=== PATIENT | male | born 1980 | race Caucasian/White ===

== ENCOUNTER 2016-10-28 20:38 | Emergency (ER) | payer OTHER ==
[~2016-10-28] VITALS: Ht 175.3 cm; Wt 81.6 kg
[2016-10-28 21:00] VITALS: BP 148/100
--- NOTE | 2016-10-29 03:09 | ED.ADGEN ---
Past History Past Medical History: Depression, Other Past Surgical History: No Surgical History Alcohol Use: Occasionally Drug Use: None Adult General Chief Complaint Chief Complaint Left hand injury [facility] Patient is a 36-year-old right-handed male who presents with 6 hour old laceration to left thumb pad. Patient caught hand on a sharp object on the underside of couch. Patient initially presented to [facility] emergency department but left prior to being seen due to prolonged waiting time. After going home, the patient applied superglue to his hand and applied a pressure bandage, which is been in place for 2 hours. Patient's concerned about possible continued bleeding. Tetanus is up-to-date Review of Systems Review of Systems ROS as per [facility] Allergies Allergies Allergies Coded Allergies Type Severity Reaction Last Updated Verified No Known Drug Allergies 10/28/16 No Physical Exam Physical Exam Constitutional: Well developed, well nourished, no acute distress, non-toxic appearance. Extremities: Left hand, thumb had laceration concealed with glue with gentle oozing around adhesive. Neurologic: Alert and oriented X 3, normal motor function, normal sensory function, no focal deficits noted. Psychologic: Affect normal, judgement normal, mood normal. Current Patient Data Vital Signs Vital Signs Date Time Temp Pulse Resp B/P Pulse Ox O2 Delivery O2 Flow Rate FiO2 10/28/16 21:00 97.8 76 20 97 Room Air EKG EKG [] Radiology/Procedures Radiology/Procedures [] Impressions: Left hand laceration Course & Med Decision Making Course & Med Decision Making Pertinent Labs and Imaging studies reviewed. (See chart for details) [Tissue adhesive applied surrounding wound edges to control bleeding. Will place on antibiotics, keep wound bandaged with PCP follow-up. Return precautions reviewed.] Final Impression Final Impression [1. left hand laceration] Problems: Dragon Disclaimer Dragon Disclaimer This chart was dictated in whole or in part using Voice Recognition software in a busy, high-work load, and often noisy Emergency Department environment. It may contain unintended and wholly unrecognized errors or omissions. NICK GARCIA DO Oct 29, 2016 03:09
== END 2016-10-28 21:42 | disposition home or self-care (01) ==
LOC: ER 20:38
DX: S61.012A Laceration without foreign body of left thumb without damage to nail, initial encounter (principal); W45.8XXA Other foreign body or object entering through skin, initial encounter; Y93.89 Activity, other specified; Y99.8 Other external cause status; Y92.89 Other specified places as the place of occurrence of the external cause
CPT/HCPCS: 12001; 99283

== ENCOUNTER 2018-03-27 22:56 | Emergency (ER) | payer OTHER ==
[~2018-03-27] VITALS: Ht 175.3 cm; Wt 86.2 kg
[2018-03-27] MEDS ORDERED: ASPIRIN 81 MG TAB.CHEW ONE (23:01)
--- NOTE | 2018-03-27 23:26 | EKG ---
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
[2018-03-27] MEDS ORDERED: MORPHINE SULFATE 4 MG/ML DISP.SYRIN. IV/SQ PRN (23:30)
[2018-03-27] MEDS ORDERED: ASPIRIN 81 MG TAB.CHEW PO ONE (23:30)
--- NOTE | 2018-03-27 23:36 | ED.ADGEN ---
Past History Past Medical History: No Pertinent History, Depression, Other Past Surgical History: No Surgical History Alcohol Use: Occasionally Drug Use: None Adult General HPI HPI Patient is a 37 year old male who presents with chest/back pain. Patient had onset of symptoms about 9:30 this evening. He was driving in a car. He was not doing anything strenuous. Pain was fell over the sternum and did radiate to the back. Currently, the patient continues to have pain in the back. He states the pain radiated to his neck at one point. He did not have shortness of breath. He has no recent travel. He does have a history of coronary artery disease in his grandfather but this was onset at a later age. Patient has otherwise been at baseline health. No fever or chills or cough. He denies prior history of similar symptoms or personal history of coronary artery disease. Review of Systems Review of Systems Constitutional: Denies fever or chills Eyes: Denies change in visual acuity, redness, or eye pain HENT: Denies nasal congestion or sore throat Respiratory: Denies cough or shortness of breath Cardiovascular: No additional information not addressed in HPI GI: Denies abdominal pain, Musculoskeletal: Denies back pain or joint pain Integument: Denies rash or skin lesions Neurologic: Denies headache Endocrine: no polydipsia All other systems were reviewed and found to be within normal limits, except as documented in this note. Current Medications Current Medications Current Medications Medications (Trade) Dose Ordered Sig/Raquel Start Time Stop Time Status Last Admin Dose Admin Aspirin (Children'S Aspirin) 324 mg 1X ONCE 03/27/18 23:30 03/28/18 00:03 DC 03/27/18 23:02 324 MG Morphine Sulfate (Morphine 4mg Syringe) 4 mg PRN Q15MIN PRN 03/27/18 23:30 03/28/18 23:29 03/27/18 23:44 4 MG Allergies Allergies Allergies Coded Allergies Type Severity Reaction Last Updated Verified No Known Drug Allergies 10/28/16 No Physical Exam Physical Exam Constitutional: Well developed, well nourished, no acute distress, non-toxic appearance. HENT: Normocephalic, atraumatic, bilateral external ears normal, oropharynx moist Eyes: PERRLA, EOMI Neck: Normal range of motion Cardiovascular:Heart rate regular rhythm, no murmur Lungs & Thorax: Bilateral breath sounds clear to auscultation Abdomen: Bowel sounds normal Skin: Warm, dry, no erythema, no rash Extremities: No edema Neurologic: Alert and oriented X 3 Psychologic: Affect normal, judgement normal, mood normal Current Patient Data Vital Signs Vital Signs Date Time Temp Pulse Resp B/P (MAP) Pulse Ox O2 Delivery O2 Flow Rate FiO2 03/28/18 00:11 57 17 125/73 (90) 96 Room Air Lab Results Laboratory Tests Test 03/27/18 23:30 White Blood Count 9.3 x10^3/uL (4.0-11.0) Red Blood Count 4.75 x10^6/uL (4.30-5.70) Hemoglobin 14.0 g/dL (13.0-17.5) Hematocrit 41.0 % (39.0-53.0) Mean Corpuscular Volume 86 fL (79-100) Mean Corpuscular Hemoglobin 30 pg (25-35) Mean Corpuscular Hemoglobin Concent 34 g/dL (31-37) Red Cell Distribution Width 13.0 % (11.5-14.5) Platelet Count 320 x10^3/uL (140-400) Neutrophils (%) (Auto) 51 % (31-73) Lymphocytes (%) (Auto) 36 % (24-48) Monocytes (%) (Auto) 8 % (0-9) Eosinophils (%) (Auto) 5 % (0-3) H Basophils (%) (Auto) 1 % (0-3) Neutrophils # (Auto) 4.7 x10^3uL (1.8-7.7) Lymphocytes # (Auto) 3.3 x10^3/uL (1.0-4.8) Monocytes # (Auto) 0.7 x10^3/uL (0.0-1.1) Eosinophils # (Auto) 0.4 x10^3/uL (0.0-0.7) Basophils # (Auto) 0.1 x10^3/uL (0.0-0.2) D-Dimer (Manisha) < 0.19 mg/L (0.00-0.50) Sodium Level 140 mmol/L (136-145) Potassium Level 3.4 mmol/L (3.5-5.1) L Chloride Level 103 mmol/L (98-107) Carbon Dioxide Level 25 mmol/L (21-32) Anion Gap 12 (6-14) Blood Urea Nitrogen 12 mg/dL (8-26) Creatinine 1.0 mg/dL (0.7-1.3) Estimated GFR (Cockcroft-Gault) 83.2 Glucose Level 109 mg/dL (70-99) H Calcium Level 8.5 mg/dL (8.5-10.1) Troponin I Quantitative < 0.017 ng/mL (0-0.055) EKG EKG No acute ST changes to suggest ischemia Radiology/Procedures Radiology/Procedures No acute findings seen on AP chest xray Course & Med Decision Making Course & Med Decision Making Pertinent Labs and Imaging studies reviewed. (See chart for details) Patient is seen and examined. His EKG is nonacute. Standard ACS workup is ordered. 02:00: All results are completed. The patient had 2 troponins which were not elevated. He had 2 EKGs which did not reveal acute ST changes concerning for ischemia. Patient had a d-dimer which was not elevated. This does rule out pulmonary embolus as a cause for his pain. Although not normally use to rule out aortic pathology, a normal dimer does decrease the chances of pain from aortic pathology. Chest x-ray was normal. There was no widened mediastinum. Overall, the patient did not have any acute source for his pain identified this evening he did receive a dose of morphine and felt much improved. Consideration is given for admission and cardiology evaluation. The patient prefers to pursue this as outpatient. He does live close to the hospital and will return if he develops any new or worsening symptoms or if his pain returns. He will be discharged from the ER this evening. He is provided the name to the business systems developer on-call and instructed to call the number on Friday to schedule a evaluation and possible stress test. All of his questions are answered prior to discharge and he is agreeable to this plan of care. Final Impression Final Impression [] Dragon Disclaimer Dragon Disclaimer This electronic medical record was generated, in whole or in part, using a voice recognition dictation system. SLOANE ACOSTA DO Mar 27, 2018 23:36
[2018-03-27 23:49] LABS: BASO # 0.1 x10^3/uL (0.0-0.2); BASO % 1 % (0-3); EOS # 0.4 x10^3/uL (0.0-0.7); EOS % 5 % (0-3); LYMPH # 3.3 x10^3/uL (1.0-4.8); LYMPH % 36 % (24-48); MEAN CORPUSCULAR HEMOGLOBIN 30 pg (25-35); MEAN CORPUSCULAR HGB CONC 34 g/dL (31-37); MEAN CORPUSCULAR VOLUME 86 fL (79-100); MONO # 0.7 x10^3/uL (0.0-1.1); MONO % 8 % (0-9); NEUT # 4.7 x10^3uL (1.8-7.7); NEUT % 51 % (31-73); PLATELET COUNT 320 x10^3/uL (140-400); RED BLOOD COUNT 4.75 x10^6/uL (4.30-5.70); WHITE BLOOD COUNT 9.3 x10^3/uL (4.0-11.0)
[2018-03-27 23:52] LABS: CALCIUM 8.5 mg/dL (8.5-10.1); GFR 83.2; POTASSIUM 3.4 mmol/L (3.5-5.1)
[2018-03-28 02:05] VITALS: BP 128/51
--- NOTE | 2018-03-28 05:45 | EKG ---
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
--- NOTE | 2018-03-28 07:56 | RAD ---
PORTABLE CHEST 1V Clinical indications: Chest pain, no prior injury or surgery to chest area COMPARISON: None available. Findings: No acute lung infiltrate or pleural effusion or pulmonary edema or lung mass or pneumothorax is seen. The heart size, pulmonary vasculature, mediastinum and both david are unremarkable. Impression: No acute radiographic abnormality is seen. Electronically signed by: Dereck Mann MD (03/28/2018 7:53 AM) [facility]
== END 2018-03-28 02:08 | disposition home or self-care (01) ==
LOC: ER 22:56
DX: R07.2 Precordial pain (principal); F32.9 Major depressive disorder, single episode, unspecified; Z79.82 Long term (current) use of aspirin
CPT/HCPCS: 36415; 71045; 80048; 84484; 85025; 85379; 93005; 96372; 99285; J2270; 96374

== ENCOUNTER 2019-05-23 11:56 | Emergency (ER) | payer OTHER ==
[~2019-05-23] VITALS: Ht 172.7 cm; Wt 81.6 kg
--- NOTE | 2019-05-23 12:26 | EKG ---
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
[2019-05-23] MEDS: IV NORMAL SALINE 1,000ML 1,000 ML IV ONE (12:34)
[2019-05-23] MEDS: ASPIRIN 81 MG TAB.CHEW PO ONE (12:34)
[2019-05-23 12:45] LABS: BASO # 0.1 x10^3/uL (0.0-0.2); BASO % 1 % (0-3); EOS # 0.3 x10^3/uL (0.0-0.7); EOS % 4 % (0-3); HEMATOCRIT 41.3 % (39.0-53.0); LYMPH # 3.1 x10^3/uL (1.0-4.8); LYMPH % 42 % (24-48); MEAN CORPUSCULAR HEMOGLOBIN 30 pg (25-35); MEAN CORPUSCULAR HGB CONC 34 g/dL (31-37); MEAN CORPUSCULAR VOLUME 88 fL (79-100); MONO # 0.6 x10^3/uL (0.0-1.1); MONO % 8 % (0-9); NEUT # 3.4 x10^3uL (1.8-7.7); NEUT % 46 % (31-73); PLATELET COUNT 322 x10^3/uL (140-400); RED BLOOD COUNT 4.68 x10^6/uL (4.30-5.70); RED CELL DISTRIBUTION WIDTH 12.8 % (11.5-14.5); WHITE BLOOD COUNT 7.4 x10^3/uL (4.0-11.0)
[2019-05-23 12:53] LABS: ALBUMIN 3.8 g/dL (3.4-5.0); ALBUMIN/GLOBULIN RATIO 1.1 (1.0-1.7); CALCIUM 8.5 mg/dL (8.5-10.1); CREATININE 0.9 mg/dL (0.7-1.3); GFR 93.5; POTASSIUM 4.1 mmol/L (3.5-5.1); TOTAL BILIRUBIN 0.4 mg/dL (0.2-1.0); TOTAL PROTEIN 7.4 g/dL (6.4-8.2)
--- NOTE | 2019-05-23 12:55 | PHYS DOC ---
Past History Past Medical History: No Pertinent History, Depression, Other Past Surgical History: No Surgical History Alcohol Use: Occasionally Drug Use: None Adult General Chief Complaint Chief Complaint: CHEST PAIN HPI HPI 38-year-old male presents with chest pain. The patient has been having intermittent chest pressure a couple of weeks. He had an episode last night that was mild 3 out of 10. He was able to sleep. The patient is having an intense episode today. It started around 9 AM, 4 hours ago. This is a 5 or 6 out of 10. It feels like a heaviness. Patient is mildly short of breath but denies diaphoresis. With his other episodes they have gotten worse with exertion. Today when he walked across the parking lot it did not intensify the pain. The patient had similar episodes about a year ago and is post Stress test but never sched uled this. Patient is also concerned today because he went to the dentist and his blood pressure was 150s over 100. He does not take blood pressure medication. He denies fever or chills. Review of Systems Review of Systems Constitutional: Denies fever or chills [] Eyes: Denies change in visual acuity, redness, or eye pain [] HENT: Denies nasal congestion or sore throat [] Respiratory: Mild shortness of breath [] Cardiovascular: No additional information not addressed in HPI [] GI: Denies abdominal pain, nausea, vomiting, bloody stools or diarrhea [] : Denies dysuria or hematuria [] Musculoskeletal: Mild low back pain[] Integument: Denies rash or skin lesions [] Neurologic: Denies headache, focal weakness or sensory changes [] Endocrine: Denies polyuria or polydipsia [] All other systems were reviewed and found to be within normal limits, except as documented in this note. Current Medications Current Medications Current Medications Medications (Trade) Dose Ordered Sig/Raquel Start Time Stop Time Status Last Admin Dose Admin Aspirin (Children'S Aspirin) 324 mg 1X ONCE 05/23/19 12:30 05/23/19 12:39 DC 05/23/19 12:34 324 MG Sodium Chloride 1,000 ml @ 1,000 mls/hr 1X ONCE 05/23/19 12:30 05/23/19 13:29 05/23/19 12:34 1,000 MLS/HR Allergies Allergies Allergies Coded Allergies Type Severity Reaction Last Updated Verified No Known Drug Allergies 10/28/16 No Physical Exam Physical Exam Constitutional: Well developed, well nourished, no acute distress, non-toxic appearance. [] HENT: Normocephalic, atraumatic, bilateral external ears normal, oropharynx moist, no oral exudates, nose normal. [] Eyes: PERRLA, EOMI, conjunctiva normal, no discharge. [] Neck: Normal range of motion, no tenderness, supple, no stridor. [] Cardiovascular:Heart rate regular rhythm, no murmur [] Lungs & Thorax: Bilateral breath sounds clear to auscultation [] Abdomen: Bowel sounds normal, soft, no tenderness, no masses, no pulsatile masses. [] Skin: Warm, dry, no erythema, no rash. [] Back: No tenderness, no CVA tenderness. [] Extremities: No tenderness, no cyanosis, no clubbing, ROM intact, no edema. [] Neurologic: Alert and oriented X 3, normal motor function, normal sensory function, no focal deficits noted. [] Psychologic: Affect normal, judgement normal, mood normal. [] Current Patient Data Vital Signs Vital Signs Date Time Temp Pulse Resp B/P (MAP) Pulse Ox O2 Delivery O2 Flow Rate FiO2 05/23/19 12:00 97.7 59 20 98 Room Air Lab Results Laboratory Tests Test 05/23/19 12:10 White Blood Count 7.4 x10^3/uL (4.0-11.0) Red Blood Count 4.68 x10^6/uL (4.30-5.70) Hemoglobin 14.0 g/dL (13.0-17.5) Hematocrit 41.3 % (39.0-53.0) Mean Corpuscular Volume 88 fL (79-100) Mean Corpuscular Hemoglobin 30 pg (25-35) Mean Corpuscular Hemoglobin Concent 34 g/dL (31-37) Red Cell Distribution Width 12.8 % (11.5-14.5) Platelet Count 322 x10^3/uL (140-400) Neutrophils (%) (Auto) 46 % (31-73) Lymphocytes (%) (Auto) 42 % (24-48) Monocytes (%) (Auto) 8 % (0-9) Eosinophils (%) (Auto) 4 % (0-3) H Basophils (%) (Auto) 1 % (0-3) Neutrophils # (Auto) 3.4 x10^3uL (1.8-7.7) Lymphocytes # (Auto) 3.1 x10^3/uL (1.0-4.8) Monocytes # (Auto) 0.6 x10^3/uL (0.0-1.1) Eosinophils # (Auto) 0.3 x10^3/uL (0.0-0.7) Basophils # (Auto) 0.1 x10^3/uL (0.0-0.2) EKG EKG Sinus rhythm, rate 57, normal axis, no ST elevations or depressions.[] Radiology/Procedures Radiology/Procedures [] Impressions: AP chest. HISTORY: Chest pain AP view was taken of the chest. Lungs are clear. Heart is normal in size. There is no pleural effusion. IMPRESSION: 1. No acute chest disease. Electronically signed by: Bruce Miller MD (05/23/2019 1:05 PM) [facility] DICTATED AND SIGNED BY: BRUCE MILLER MD DATE: 05/23/19 [id number] CC: NICK GERMAN DO; CARLA CAMACHO PA-C ~ Course & Med Decision Making Course & Med Decision Making Pertinent Labs and Imaging studies reviewed. (See chart for details) The patient's labs are unremarkable. His troponin is negative. His EKG is unremarkable. His chest x-ray is negative for acute findings. His heart score is 2. Based on this score, it is safe for the patient to be discharged to home. I discussed this with him and he would like to go home. He is stable for discharge at this time. He will return if any of these symptoms recur. He will follow-up with his primary care physician this week to discuss his hypertension and a stress test. [] Dragon Disclaimer Dragon Disclaimer This electronic medical record was generated, in whole or in part, using a voice recognition dictation system. The HEART Score for CP Pts HEART Score for Chest Pain: HEART Score for Chest Pain Response (Comments) Value History Moderately Suspicious 1 ECG Normal 0 Age < 45 0 Risk Factors 1 or 2 Risk Factors 1 Troponin < Normal Limit 0 Total 2 Risk Factors: Risk Factors: DM, Current or recent (<one month) smoker, HTN, HLP, family history of CAD, obesity. Risk Scores: Score 0 - 3: 2.5% MACE over next 6 weeks - Discharge Home Score 4 - 6: 20.3% MACE over next 6 weeks - Admit for Clinical Observation Score 7 - 10: 72.7% MACE over next 6 weeks - Early Invasive Strategies Departure Departure: Impression: Primary Impression: Chest pain Additional Impression: Hypertension Disposition: HOME, SELF-CARE Condition: STABLE Referrals: CARLA CAMACHO PA-C (PCP) Patient Instructions: Chest Pain (Nonspecific), [id number], Hypertension, [id number] Problem Qualifiers Primary Impression: Chest pain Chest pain type: precordial pain Qualified Codes: R07.2 - Precordial pain Additional Impression: Hypertension Hypertension type: essential hypertension Qualified Codes: I10 - Essential (primary) hypertension NICK GERMAN DO May 23, 2019 12:55
[2019-05-23 13:05] VITALS: BP 144/100
[2019-05-23 13:08] LABS: BACTERIA,URINE 0 /HPF (0-FEW); BILIRUBIN,URINE NEG (NEG); CLARITY,URINE CLEAR; COLOR,URINE YELLOW; GLUCOSE,URINE NEG (NEG); NITRITE,URINE NEG (NEG); UROBILINOGEN,URINE 0.2 mg/dL (0.2 mg/dL)
--- NOTE | 2019-05-23 13:08 | RAD ---
AP chest. HISTORY: Chest pain AP view was taken of the chest. Lungs are clear. Heart is normal in size. There is no pleural effusion. IMPRESSION: 1. No acute chest disease. Electronically signed by: Bruce Patel MD (05/23/2019 1:05 PM) [facility]
== END 2019-05-23 14:06 | disposition home or self-care (01) ==
LOC: ER 11:56
DX: R07.2 Precordial pain (principal); I10 Essential (primary) hypertension
CPT/HCPCS: 36415; 71045; 80053; 81001; 84484; 85025; 93005; 99285-25; J7030

== ENCOUNTER 2020-05-11 22:30 | Emergency (ER) | payer OTHER ==
[~2020-05-11] VITALS: Ht 172.7 cm; Wt 82.4 kg
[2020-05-11] MEDS ORDERED: ASPIRIN 325 MG TABLET PO ONE (22:45)
[2020-05-11] MEDS ORDERED: IV NORMAL SALINE 1,000ML 1,000 ML IV ONE (22:45)
[2020-05-11 23:09] LABS: BASO % 0 % (0-3); EOS % 0 % (0-3); HEMATOCRIT 37.2 % (39.0-53.0); HEMOGLOBIN 12.5 g/dL (13.0-17.5); LYMPH # 0.9 x10^3/uL (1.0-4.8); LYMPH % 12 % (24-48); MEAN CORPUSCULAR HEMOGLOBIN 31 pg (25-35); MEAN CORPUSCULAR HGB CONC 34 g/dL (31-37); MEAN CORPUSCULAR VOLUME 91 fL (79-100); MONO # 0.2 x10^3/uL (0.0-1.1); MONO % 3 % (0-9); NEUT # 6.2 x10^3uL (1.8-7.7); NEUT % 85 % (31-73); PLATELET COUNT 300 x10^3/uL (140-400); RED BLOOD COUNT 4.08 x10^6/uL (4.30-5.70); RED CELL DISTRIBUTION WIDTH 13.2 % (11.5-14.5); WHITE BLOOD COUNT 7.3 x10^3/uL (4.0-11.0)
[2020-05-11 23:12] VITALS: BP 138/86
[2020-05-11 23:15] LABS: CALCIUM 8.6 mg/dL (8.5-10.1); CREATININE 1.2 mg/dL (0.7-1.3); GFR 66.7; POTASSIUM 3.5 mmol/L (3.5-5.1)
[2020-05-11 23:31] LABS: ALBUMIN 3.5 g/dL (3.4-5.0); ALBUMIN/GLOBULIN RATIO 0.9 (1.0-1.7); MAGNESIUM 2.3 mg/dL (1.8-2.4); TOTAL BILIRUBIN 0.3 mg/dL (0.2-1.0); TOTAL PROTEIN 7.6 g/dL (6.4-8.2)
[2020-05-11] MEDS ORDERED: FAMO-63 PO (23:38)
--- NOTE | 2020-05-11 23:39 | PHYS DOC ---
Past History Past Medical History: Other Additional Past Medical Histor: back pain Past Surgical History: No Surgical History Smoking: Non-smoker Alcohol Use: Occasionally Drug Use: None General Adult EDM: Chief Complaint: CHEST PAIN HPI: HPI: 39-year-old male presents with report of chest pressure that occurred at home just prior to arrival. Patient reports he had suddenly felt some chest pressure with associated sweatiness and lightheadedness. Patient does report he lost consciousness. Reports he has been out in the sun working all day today. Denies leg swelling or calf tenderness. Denies known trauma. Denies fever or chills. Review of Systems: Review of Systems: Constitutional: Denies fever or chills Eyes: Denies redness or eye pain HENT: Denies nasal congestion or sore throat Respiratory: Denies cough or shortness of breath Cardiovascular: Reports chest pain; denies palpitations GI: Denies abdominal pain, nausea, or vomiting : Denies dysuria or hematuria Musculoskeletal: Denies back pain or joint pain Integument: Denies rash or skin lesions Neurologic: Denies headache, focal weakness or sensory changes; reports syncope Complete systems were reviewed and found to be within normal limits, except as documented in this note. Heart Score: HEART Score for Chest Pain: HEART Score for Chest Pain Response (Comments) Value History Moderately Suspicious 1 ECG Normal 0 Age < 45 0 Risk Factors No Risk Factors 0 Troponin < Normal Limit 0 Total 1 Risk Factors: Risk Factors: DM, Current or recent (<one month) smoker, HTN, HLP, family hist ory of CAD, obesity. Risk Scores: Score 0 - 3: 2.5% MACE over next 6 weeks - Discharge Home Score 4 - 6: 20.3% MACE over next 6 weeks - Admit for Clinical Observation Score 7 - 10: 72.7% MACE over next 6 weeks - Early Invasive Strategies Current Medications: Current Meds: Current Medications Medications (Trade) Dose Ordered Sig/Raquel Start Time Stop Time Status Last Admin Dose Admin Aspirin (José Aspirin) 325 mg 1X ONCE 05/11/20 22:45 05/11/20 22:46 DC 05/11/20 23:23 325 MG Famotidine (Pepcid Vial) 20 mg 1X ONCE 05/11/20 23:45 05/11/20 23:46 05/11/20 23:27 20 MG Ondansetron HCl (Zofran) 4 mg 1X ONCE 05/11/20 23:45 05/11/20 23:46 05/11/20 23:27 4 MG Sodium Chloride 1,000 ml @ 1,000 mls/hr 1X ONCE 05/11/20 22:45 05/11/20 23:44 05/11/20 23:23 1,000 MLS/HR Allergies: Allergies: Allergies Coded Allergies Type Severity Reaction Last Updated Verified No Known Drug Allergies 10/28/16 No Physical Exam: PE: Constitutional: Well developed, well nourished, no acute distress, non-toxic appearance HENT: Normocephalic, atraumatic Eyes: PERRL, EOMI, conjunctiva normal, no discharge, no nystagmus Neck: Normal range of motion, no tenderness, supple Lungs & Thorax: No respiratory distress, equal chest rise and fall Abdomen: Soft, no tenderness Skin: Warm, dry, no erythema, no rash Extremities: No tenderness, ROM intact, no edema Neurologic: Alert and oriented X 3, no focal motor or motor deficit noted Psychologic: Affect anxious, judgment normal Current Patient Data: Labs: Laboratory Tests Test 05/11/20 22:40 White Blood Count 7.3 x10^3/uL (4.0-11.0) Red Blood Count 4.08 x10^6/uL (4.30-5.70) L Hemoglobin 12.5 g/dL (13.0-17.5) L Hematocrit 37.2 % (39.0-53.0) L Mean Corpuscular Volume 91 fL (79-100) Mean Corpuscular Hemoglobin 31 pg (25-35) Mean Corpuscular Hemoglobin Concent 34 g/dL (31-37) Red Cell Distribution Width 13.2 % (11.5-14.5) Platelet Count 300 x10^3/uL (140-400) Neutrophils (%) (Auto) 85 % (31-73) H Lymphocytes (%) (Auto) 12 % (24-48) L Monocytes (%) (Auto) 3 % (0-9) Eosinophils (%) (Auto) 0 % (0-3) Basophils (%) (Auto) 0 % (0-3) Neutrophils # (Auto) 6.2 x10^3uL (1.8-7.7) Lymphocytes # (Auto) 0.9 x10^3/uL (1.0-4.8) L Monocytes # (Auto) 0.2 x10^3/uL (0.0-1.1) Eosinophils # (Auto) 0.0 x10^3/uL (0.0-0.7) Basophils # (Auto) 0.0 x10^3/uL (0.0-0.2) Prothrombin Time 9.9 SEC (9.4-11.4) Prothrombin Time INR 1.0 (0.9-1.1) Activated Partial Thromboplast Time 26 SEC (23-33) Sodium Level 144 mmol/L (136-145) Potassium Level 3.5 mmol/L (3.5-5.1) Chloride Level 107 mmol/L (98-107) Carbon Dioxide Level 23 mmol/L (21-32) Anion Gap 14 (6-14) Blood Urea Nitrogen 13 mg/dL (8-26) Creatinine 1.2 mg/dL (0.7-1.3) Estimated GFR (Cockcroft-Gault) 66.7 BUN/Creatinine Ratio 11 (6-20) Glucose Level 158 mg/dL (70-99) H Calcium Level 8.6 mg/dL (8.5-10.1) Magnesium Level 2.3 mg/dL (1.8-2.4) Total Bilirubin 0.3 mg/dL (0.2-1.0) Aspartate Amino Transferase (AST) 35 U/L (15-37) Alanine Aminotransferase (ALT) 34 U/L (16-63) Alkaline Phosphatase 81 U/L (46-116) Creatine Kinase 575 U/L (39-308) H Creatine Kinase MB (Mass) 2.6 ng/mL (0.0-3.6) Creatine Kinase MB Relative Index 0.5 % (0-4) Troponin I Quantitative < 0.017 ng/mL (0-0.055) MR-Dni-S-Type Natriuretic Peptide 26 pg/mL (0-124) Total Protein 7.6 g/dL (6.4-8.2) Albumin 3.5 g/dL (3.4-5.0) Albumin/Globulin Ratio 0.9 (1.0-1.7) L Lipase 108 U/L (73-393) Vital Signs: Vital Signs Date Time Temp Pulse Resp B/P (MAP) Pulse Ox O2 Delivery O2 Flow Rate FiO2 05/11/20 23:12 97.7 68 22 138/86 (103) 100 Room Air EKG: EKG: @2233 NSR at 64bpm, NO ST elevation, QRS 80mw, QT/QTc 404/421ms Radiology/Procedures: Radiology/Procedures: [] Course & Med Decision Making: Course & Med Decision Making Pertinent Labs and Imaging studies reviewed. (See chart for details) Neurologically intact patient presents with report of chest discomfort with asso ciated syncopal episode. Patient reports he has been working out in the heat all day today. Patient does appear dehydrated. IV fluid hydration provided. EKG stable. Labs obtained and posted to chart. Troponin within normal limits. Chest x-ray without acute process. HEART score 1. PERC negative. Patient stable for discharge with outpatient follow-up with PCP. Discussed find ings and plan with patient, who acknowledges understanding and agreement. Dragon Disclaimer: Dragon Disclaimer: This electronic medical record was generated, in whole or in part, using a voice recognition dictation system. Departure Departure: Impression: Primary Impression: Syncope Qualified Codes: R55 - Syncope and collapse Additional Impressions: Atypical chest pain Dehydration Disposition: HOME/RESIDENCE PRIOR TO ADM Condition: STABLE Referrals: CARLA CAMACHO PA-C (PCP) KARENA MARTIN MD Patient Instructions: Chest Pain (Nonspecific), Kxhb-ve-Ijuc, Dehydration, Adult, Zzaw-bc-Dqyr, Heat-Related Illness, Syncope, Ibqj-lx-Dame Scripts Famotidine (PEPCID) 20 Mg Tablet 1 TAB PO BID for gastritis, #20 TAB Prov: SEDA RAY DO 05/11/20 Justification of Admission: Justification of Admission: Justification of Admission Dx: N/A PERC Rule for PE PERC Rule for PE Response (Comments) Value Age > 50: No 0 HR > 100: No 0 Sa02 on room air <95%: No 0 Unilateral leg swelling: No 0 Hemoptysis: No 0 Recent surgery or trauma: No 0 Prior PE or DVT: No 0 Hormone use: No 0 Total 0 SEDA RAY DO May 11, 2020 23:39
[2020-05-11] MEDS ORDERED: FAMOTIDINE 20 MG/2 ML VIAL IVP ONE (23:45)
[2020-05-11] MEDS ORDERED: ONDANSETRON PF 4 MG/2 ML VIAL. IVP ONE (23:45)
--- NOTE | 2020-05-11 23:48 | RAD ---
PA and lateral chest radiographs 05/11/2020 CLINICAL HISTORY: Chest pain. PA and lateral digital radiographs of the chest were obtained. Comparison study is dated 05/15/2019. The cardiac silhouette is normal in size. The thoracic aorta is minimally tortuous. No acute pulmonary infiltrate is seen. No pleural effusion or pneumothorax is noted. Minimal S-shaped curvature of the thoracolumbar spine is seen. Mild degenerative changes are seen involving the thoracic spine. IMPRESSION: No acute abnormality is seen. Electronically signed by: David Soto MD (05/11/2020 11:46 PM) [id number]
--- NOTE | 2020-05-12 06:24 | EKG ---
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
== END 2020-05-11 23:55 | disposition home or self-care (01) ==
LOC: ER 22:30
DX: R55 Syncope and collapse (principal); R07.89 Other chest pain; E86.0 Dehydration
CPT/HCPCS: 36415; 71046; 80053; 82553; 83690; 83735; 83880; 84484; 85025; 85610; 85730; 93005; 96374; 96375; 99285; J2405; J3490; J7030